=== PATIENT | male | born 1955 | race African-American/Black ===

== ENCOUNTER 2016-12-26 13:03 | Emergency (ER) | payer MEDICAID ==
[~2016-12-26] VITALS: Ht 175.3 cm; Wt 80.0 kg
[~2016-12-26 13:03] MED LIST: METF500T4 PO
[2016-12-26] MEDS ORDERED: ACETAMINOPHEN WITH CODEINE 300/30MG TABLET PO ONE (13:15)
[2016-12-26] MEDS ORDERED: LIDOCAINE HCL 1%/EPI 1:200,000 30 ML VIAL MC ONE (13:15)
[2016-12-26] MEDS ORDERED: TETANUS, DIPHTHERIA, PERTUSSIS VAC/PF 0.5ML (>7YR OLD) IM ONE (13:15)
[2016-12-26 13:52] VITALS: BP 166/94
== END 2016-12-26 16:33 | disposition home or self-care (01) ==
LOC: ER 13:09
DX: S02.81XA Fracture of other specified skull and facial bones, right side, initial encounter for closed fracture (principal); S02.2XXA Fracture of nasal bones, initial encounter for closed fracture; J45.909 Unspecified asthma, uncomplicated; E11.9 Type 2 diabetes mellitus without complications; I10 Essential (primary) hypertension; F12.10 Cannabis abuse, uncomplicated; Z88.0 Allergy status to penicillin; Y00.XXXA Assault by blunt object, initial encounter; Y93.89 Activity, other specified; Y92.488 Other paved roadways as the place of occurrence of the external cause
CPT/HCPCS: 70450; 70486; 90471; 90715; 99284; X7700; Z7610